=== PATIENT | female | born 1965 | race Caucasian/White ===

== ENCOUNTER → 2021-07-31 10:21 | Outpatient (CLI) | payer BC, SELFPAY ==
--- NOTE | ~2021-07-31 | MM_ITS ---
EXAMINATION: MM screening jennifer BI w justine HISTORY: Screening TECHNIQUE: Craniocaudal and mediolateral oblique 3-D tomosynthesis images were obtained and synthetic 2-D images were generated. CAD analysis was submitted and interpreted. COMPARISON: No prior mammogram is available for comparison at this institution. BREAST PARENCHYMAL COMPOSITION: There are scattered areas of fibroglandular density. FINDINGS: There is no evidence of suspicious mass, calcification, or architectural distortion to sugg est malignancy in either breast. There has been no suspicious interval change. IMPRESSION: 1. No mammographic evidence of malignancy. 2. Recommend routine screening mammography in one year. BI-RADS Category 1: Negative Reviewed, dictated and finalized at location A. L[facility] [employer]SEMBLER
== END ==
PROVIDERS: PCP Internal Medicine; Visit Provider Obstetrics & Gynecology Gynecology
DX: Z12.31 Encounter for screening mammogram for malignant neoplasm of breast (principal)
CPT/HCPCS: 77063; 77067

== ENCOUNTER 2022-05-12 18:24 | Emergency (ER) | payer BC, SELFPAY ==
[2022-05-12] VITALS (13 sets, daily range): BP systolic 122–150; BP diastolic 72–109; PULSE 60–65; RESP 16–18; TEMP 37; O2SAT 93–100
--- NOTE | ~2022-05-12 | XR_ITS ---
EXAM: XR finger 1st LT min 2V DATE: 05/12/2022 19:43 HISTORY: post-reduction . COMPARISON: None available. FINDINGS: Interval reduction into near-anatomic alignment. Dorsal cortical avulsion off the posterio r and proximal aspect of the first distal phalanx, with significant residual distraction. IMPRESSION: The first left distal phalanx has been relocated into near-anatomic alignment. Persistent distraction of the dorsal avulsion fracture fragment. Reviewed, dictated and finalized at location K.
--- NOTE | ~2022-05-12 | XR_ITS ---
EXAMINATION: XR chest 2V Exam Date/Time: 05/12/2022 19:00 CDT HISTORY: syncope Comparison: None available. RESULT: Lines, tubes, and devices: None. Lungs and pleura: Right upper lung granuloma. Reticulonodular opacities most evident in the left mid and lower lung. Hyperinflation, as can be seen with emphysematous change. Lateral costophrenic angle blunting likely related to pleural flattening/scarring. Cardiomediastinal silhouette: Stable. Other: No acute osseous or upper abdominal finding. IMPRESSION: Pulmonary opacities may represent bronchiolitis, as can be seen with atypical infection, asthma, aspi ration, and small airways disease. Reviewed, dictated and finalized at location K. IMPRESSION: Pulmonary opacities may represent bronchiolitis, as can be seen with atypical i nfection, asthma, aspiration, and small airways disease.
--- NOTE | ~2022-05-12 | XR_ITS ---
EXAM: XR hand LT min 3V DATE: 05/12/2022 19:10 HISTORY: left hand pain, injury . COMPARISON: None available. FINDINGS: Normal mineralization. Anterior (palmar) dislocation of the left first distal phalanx, wit h a likely avulsive fracture fragment noted at the distal end of the first proximal phalanx. No lytic or blastic lesion. Joint spaces are maintained. No erosion or periosteal change. Soft tissues within normal limits. IMPRESSION: Anterior left first distal phalanx dislocation, with small associated avulsion fracture. Reviewed, dictated and finalized at location K. IMPRESSION: Anterior left first distal phalanx dislocation, with small associat ed avulsion fracture.
--- NOTE | ~2022-05-12 | XR_ITS ---
EXAM: XR ankle RT min 3V DATE: 05/12/2022 19:10 HISTORY: right ankle pain, injury . COMPARISON: None available. FINDINGS: Normal mineralization. Oblique fracture of the distal right fibula, extending to the joint line, with 1 cm posterior lateral displacement. Significant widening of the medial gutter. Lateral s ubluxation of the talus. Ossific fragment in the medial gutter likely representing an avulsion fractu re fragment. No lytic or blastic lesion. Joint spaces are maintained. No erosion or periosteal change . Soft tissues within normal limits. IMPRESSION: Oblique mildly displaced distal right fibular fracture (Salvador B type fracture). Medial ma lleolus versus medial talar avulsion fracture. Significant widening of the medial joint space. Latera l talar subluxation. Reviewed, dictated and finalized at location K. IMPRESSION: Oblique mildly displaced distal right fibular fracture (Salvador B typ e fracture). Medial malleolus versus medial talar avulsion fracture. Significan t widening of the medial joint space. Lateral talar subluxation.
--- NOTE | 2022-05-12 18:38 | ECG_ITS ---
Measurements Intervals [place] Rate: 64 P: 38 [place]: 174 QRS: 15 QRSD: 89 T: 22 QT: 416 QTc: 430 Interpretive Statements SINUS RHYTHM NO PREVIOUS ECG AVAILABLE FOR COMPARISON Electronically Signed On 05-13-2022 11:36:26 CDT by Berry Urias M.D.
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
[2022-05-12] MEDS: TETANUS,DIPHTHERIA,AC PERTUSSIS ADULT (0.5 ML) BOOSTRIX IM (18:44)
[2022-05-12 19:25] LABS: Basophils Percent Auto 0.6 % (0.2-1.2); Eosinophils Absolute Auto 0.1 K/mm3 (0-0.3); Eosinophils Percent Auto 1.3 % (0-4.4); Hematocrit 35.8 % (37.0-47.0); Hemoglobin 12.1 g/dL (12.0-15.0); Immature Granulocyte Absolute 0.03 K/mm3 (0.00-0.031); Immature Granulocyte Percent A 0.5 % (0-0.5); Lymphocytes Absolute Auto 1.37 K/mm3 (0.9-3.2); Lymphocytes Percent Auto 21.8 % (18.3-44.2); Mean Corpuscular HGB Conc 33.8 g/dl (32-36); Mean Corpuscular Volume 100.6 fl (80-100); Mean Platelet Volume 9.2 fl (7.4-10.4); Monocytes Absolute Auto 0.5 K/mm3 (0.1-0.6); Monocytes Percent Auto 7.8 % (2.6-8.5); Neutrophils Absolute Auto 4.3 K/mm3 (1.3-6.7); Platelet Count Result 271 k/mm3 (150-375); Red Blood Count 3.56 M/mm3 (4.2-5.4); White Blood Count 6.3 K/mm3 (4.5-10.0)
[2022-05-12 19:35] LABS: Anion Gap 15 mmol/L (8-16); Blood Urea Nitrogen 14 mg/dL (7-17); Calcium 8.6 mg/dL (8.4-10.2); Carbon Dioxide 24 mmol/L (22-30); Chloride 100 mmol/L (98-107); Estimated CRCL calculation 48 ml/min; Estimated Glomerular Filt Rate 57; Glucose 104 mg/dL (65-110); Potassium 3.6 mmol/L (3.4-5.0); Sodium 139 mmol/L (137-145)
[2022-05-12] MEDS: MORPHINE SULFATE (*CRX) 4 MG/ML INJ IV PUSH (20:21)
[2022-05-12] MEDS: ONDANSETRON INJ 4 MG/2 ML VIAL IV PUSH (20:21)
== END 2022-05-12 21:55 | disposition home or self-care (01) ==
PROVIDERS: Physician Assistant; Emergency Provider Preventive Medicine Aerospace Medicine; PCP Internal Medicine
DX: S61.412A Laceration without foreign body of left hand, initial encounter (principal); S82.831A Other fracture of upper and lower end of right fibula, initial encounter for closed fracture; S62.522A Displaced fracture of distal phalanx of left thumb, initial encounter for closed fracture; Z23 Encounter for immunization; I10 Essential (primary) hypertension; F17.200 Nicotine dependence, unspecified, uncomplicated; R91.8 Other nonspecific abnormal finding of lung field; V00.141A Fall from scooter (nonmotorized), initial encounter
CPT/HCPCS: 12001; 26755; 29515; 36415; 71046; 73130; 73140; 73610; 80048; 85025; 90471; 90715; 93005; 96365; 96375; 99285; J0131; J2270; J2405

== ENCOUNTER 2022-05-20 10:10 | Outpatient (CLI) | payer BC, SELFPAY ==
--- NOTE | ~2022-05-20 | XR_ITS ---
EXAMINATION: XR finger 1st LT min 2V INDICATION: Left first finger pain TECHNIQUE: Three views of the left first finger are obtained. COMPARISON: 05/12/2022 FINDINGS: Again seen is an oblique intra-articular fracture at the palmar base of the first distal ph alanx which extends to the interphalangeal joint and involves less than 50% of the joint space. There is also an unchanged avulsion at the dorsal base of the first distal phalanx with proximal retractio n of the avulsed fragment which lies dorsal to the proximal phalanx. There is soft tissue swelling th e finger. No new fracture is identified. A splint has been applied. IMPRESSION: 1. Unchanged fractures of the first distal phalanx as described above. Reviewed, dictated and finalized at location A.
== END 2022-05-20 10:11 | disposition home or self-care (01) ==
PROVIDERS: PCP Internal Medicine; Visit Provider Plastic Surgery
DX: S62.522A Displaced fracture of distal phalanx of left thumb, initial encounter for closed fracture (principal)
CPT/HCPCS: 73140

== ENCOUNTER 2022-05-30 00:24 | Day surgery (SDC) | payer BC, SELFPAY ==
[2022-05-27 15:57] VITALS: BMI 25.8
--- NOTE | 2022-05-27 16:15 | PC.NURSE ---
Report to the Outpatient Waiting Room, entrance under the green pavilion located off [facility], at time __0730__ on date __05/30/22__. Planned Procedure Time: ___929 . Time changes happen often and if your time is changed the preop area will call you the afternoon before. - You and your visitor will be asked to self-screen and do not enter if you have any COVID symptoms. - We encourage only one visitor and NO visitors under age 16 are allowed at this time. Your visitor will receive communication by the phone number that is given day of service. - The patient visitor is requested to social distance or may leave the building when not with patient due to restrictions. - A mask is required within the hospital. Patients may have clear liquids (water, carbonated beverages, clear teas, apple juice) until 3 hours prior to surgery (0630 AM) with a maximum of 20 ounces. - No food from midnight until time of surgery - Infants may have breast milk until 4 hours before surgery, formula 6 hours prior to surgery. - Children will be allowed to drink immediately following surgery. If applicable, please bring a bottle or sippy cup to assist with drinking. Juice, water, soda, and popsicles are readily available. For infants on formula, please bring formula the day of surgery. Pacifiers are allowed. Take the following medications with a SIP of water the morning of surgery: _METOPROLOL, PAROXETINE, PAIN PILL IF NEEDED__ Medications to discontinue per physician _PT STATES INSTRUCTED TO STAY ON ASPIRIN PER DR. COX__ Medications to discontinue per ANESTHESIA - _VITAMINS/SUPPLEMENTS, 3 DAYS PRIOR TO SURGERY, Date to take last dose 05/27/22_ Please no make-up, nail canadian, hairspray, perfume, deodorant, or body powder the day of surgery. No jewelry (including any body piercings) or valuables the day of surgery, leave them at home. Please take a shower or bath the night before, or the morning of, surgery with an antibacterial soap. Wear comfortable, loose fitting clothing. Children are encouraged to wear pajamas. - Jewelry must be removed prior to entering the operating room. Rings and piercings that are not removed may be cut off. - The hospital will not accept responsibility for valuables. - Please leave all valuables, including medications, at home the day of surgery. If you are going home after surgery, a licensed recycling collections driver must drive you home. - NO public transportation without another adult. - We recommend that an adult stay with you for 24 hours following discharge. - We also recommend that you do not drive, make important decision, drink alcoholic beverages, or take any drugs that were not prescribed by your health care provider for at least 24 hours after your discharge time. For Pediatric surgeries, we recommend two adults accompany the child home. Follow any additional instructions given to you from your surgeon. If you or anyone in your household have experienced Covid symptoms in the past week, please notify your surgeon or the nurse liaison at the phone number below for possible testing. Telephone instructions given to ____PT and asked if any additional questions and then verbalized understanding. Patient advised to call surgeon office or pre surgery nurse liaison [phone] if any additional questions.
[2022-05-30] VITALS (8 sets, daily range): BP systolic 107–149; BP diastolic 53–78; PULSE 59–72; RESP 10–16; TEMP 36.1–36.8; O2SAT 95–100
--- NOTE | ~2022-05-30 | XR_ITS ---
EXAMINATION: XR surgery orthopedic DATE: 05/30/2022 12:04 INDICATION: ORIF left thumb fracture TECHNIQUE: 2 fluoroscopic images of the left thumb were obtained during procedure performed by Dr. Reina. Radiologist was not present for the imaging or procedure. The amount of fluoroscopy time used du ring this procedure was 1.5 minutes. COMPARISON: 05/20/2022 FINDINGS: Again seen is a comminuted intra-articular fracture involving the dorsal and volar aspect of the base of the left first distal phalanx. Fracture is been reduced to near anatomic alignment and is fixed w ith a pair of axially directed pins which extend from the distal aspect of the distal phalanx across the first interphalangeal joint and into the proximal phalanx. No new fractures identified. Mild oste oarthritis at the first interphalangeal joint. IMPRESSION: 1. Near-anatomic alignment post reduction and pin fixation of a comminuted intra-articular fracture a t the base of the left first distal phalanx. Reviewed, dictated and finalized at location A. IMPRESSION: 1. Near-anatomic alignment post reduction and pin fixation of a comminuted intr a-articular fracture at the base of the left first distal phalanx.
--- NOTE | 2022-05-30 07:08 | WPDHPUPDATE1 ---
History and Physical Update Update Date/Time: 05/30/22 07:08 History and Physical has been reviewed, including an updated exam of the patient. There are NO changes in the patient's condition. Risks, benefits, and alternatives have been discussed and questions answered. Patient agrees to proceed with procedure.
[2022-05-30] MEDS: ACETAMINOPHEN 500 MG TABLET 1000 MG PO (07:50)
[2022-05-30] MEDS: LACTATED RINGERS 1,000 ML 30 ML IV CONT ×2 (08:04→12:08)
--- NOTE | 2022-05-30 08:19 | WPDANESEPPF ---
Anes - Initial Pre Proc Eval Procedure: Operation Date: 05/30/22 09:30 Proposed Procedures p Open Reduction Internal Fixation Left Thumb - Sly Cortez MD Date/Time: 05/30/22 08:19 Surgeon: Sly Cortez MD Pre Op Diagnosis: fracture of left thumb distal phalanx Patient Data Age: 57 Gender: F Height: 1.65 m Weight: 68.8 kg Last Vital Signs Temp 36.1 C L 05/30/22 07:31 Pulse 72 05/30/22 07:31 Resp 16 05/30/22 07:31 BP 107/53 L 05/30/22 07:31 Pulse Ox 99 05/30/22 07:31 O2 Del Method Room Air 05/30/22 07:31 Allergies Allergy/AdvReac Type Severity Reaction Status Date / Time codeine AdvReac Unknown GI UPSET Verified 05/30/22 07:39 Home Medications Medication Instructions Recorded Confirmed Type hydrocodone 5 mg-acetaminophen 325 1 tablet PO Q8H PRN pain #20 tabs 05/12/22 05/27/22 Rx mg tablet ondansetron 4 mg disintegrating 4 mg PO Q8H PRN nausea and 05/12/22 05/27/22 Rx tablet vomiting #20 tabs aspirin 81 mg chewable tablet 81 mg BID 05/27/22 05/30/22 History atorvastatin 20 mg tablet 20 mg QAM 05/27/22 05/30/22 History cetirizine 10 mg capsule (Zyrtec) 10 mg PO DAILY 05/27/22 05/30/22 History cholecalciferol (vitamin D3) 50 50 mcg PO DAILY 05/27/22 05/30/22 History mcg (2,000 unit) capsule cyanocobalamin (vitamin B-12) 1,000 mcg sublingual DAILY 05/27/22 05/30/22 History 1,000 mcg sublingual lozenge lisinopril 20 1 tablet QAM 05/27/22 05/30/22 History mg-hydrochlorothiazide 25 mg tablet metoprolol succinate 100 mg 50 mg PO QAM 05/27/22 05/30/22 History tablet,extended release 24 hr paroxetine HCl 10 mg tablet 10 mg PO QAM 05/27/22 05/30/22 History turmeric root extract 500 mg 500 mg PO QAM 05/27/22 05/30/22 History capsule Patient hx anesthesia problems: none Family hx anesthesia problems: none Results Review: All pre-operative results and documents have been reviewed as part of the pre-operative evaluation. [facility] Past Medical History Medical History History of hypertension Surgical History Surgical History History of tubal ligation Social History Social History Smoking packs per day: 0.5 Smoking cigarettes per day: 10.0 Years smoked: 40 Smoking pack-years: 20.00 Smoking status: Former smoker Tobacco type: cigarettes Smoking end date: 05/12/22 Alcohol intake: current Drinks per week: 10 Substance use: never Substance use type: does not use Living arrangements: with family Spiritual care concerns: No Anes - Eval Final PreProcedure Day of Procedure 05/30/22 08:19 Patient weight: normal Heart: regular rate and rhythm Lungs: clear to auscultation Airway: Mallampati scale class II Neurological: alert and oriented Last oral intake: >/= 8 hours ASA classification: III Emergent: no Anesthetic plan: proceed Anesthesia type and monitoring: general LMA and standard monitoring Results Review: All pre-operative results and documents have been reviewed as part of the pre-operative evaluation. Informed Consent: The patient's anesthetic plan and its attendant risks and benefits were discussed with the patient/family/POA. Questions were solicited and answers provided to the satisfaction of the patient/family/POA.
[2022-05-30] MEDS: LIDO 2%/EPINEPHRINE 1:100,000 20 ML VIAL INFILTRATE (09:45)
[2022-05-30] MEDS: ceFAZolin 2 GM/D5W 50 ML 2 GM/50 ML BAG IVPB (09:45)
--- NOTE | 2022-05-30 12:30 | W.PM.PROC2 ---
Procedure Note - Detailed Date of Procedure 05/30/22 Pre-op Diagnosis Fracture of left thumb distal phalanx with disinsertion of the terminal tendon. Post-op Diagnosis Other (Fracture of the left 5th distal phalanx with avulsion of the terminal tendon.) Procedure Performed ORIF of left 1st distal phalanx with c wire fixation and reinsertion of the terminal tendon. Surgeon Sly Cortez MD Reciprocating Drill Operator [place] Anesthesia General Indications Open fracture of the left 5th distal phalanx. Findings Bony avulsion of the insertion of the terminal tendon Description of Procedure Left thumb was marked on the patient's hand with her consent in the holding area. She was then taken to the operating room where she was placed supine on the operating table. She was given general endotracheal anesthesia and the extremity was prepped and draped in usual fashion. Clinical exam at this point with demonstration of the tenodesis and with pressure on the musculotendinous units with the patient under anesthesia appeared to indicate that both the flexor and extensor tendons were functionally intact. There is however the large floating bone fragment lying over the head of the proximal phalanx which is to be evaluated reduced. It is believed this belongs to the dorsal base of the distal phalanx. The digit was blocked with 2% lidocaine with epinephrine. The extremity was exsanguinated with the Harjeet wrap and the tourniquet inflated to 250 mmHg. Images under continuous fluoroscopy indicated the dorsal fracture fragment. What I thought was also a small volar fracture fragment was again seen but even with extension there was no widening of the less than 2 mm fracture gap. I elected to open the dorsal aspect with a straight midline incision with a Y near the nail fold. Skin flaps carefully elevated revealed some hematoma and abnormal bulge of the dorsal interphalangeal joint distally on the radial side. A slip of the extensor tendon appeared to be intact on the the ulnar l side. Images with a needle slipped under the bone fragment revealed its relation to the joint. I proceeded to incise through the soft tissue that was stretched across the joint distal to the fracture fragment opening the joint and exposing both surfaces of the fracture . This proved to represent an avulsion fracture of the dorsal base of the distal phalanx attached to extensor tendon in a fairly broad area. The subluxed distal phalanx was appropriately position and a 0.035 in C-wire was passed retrograde from the tip of the distal phalanx across the joint and into the proximal phalanx. The reduced tendon was sutured at both sides of the avulsed fragment with 4-0 Ethibond mattress sutures. Images confirmed satisfactory reduction of the fragment. A 2nd C-wire was passed retrograde from the tip into the base of the proximal phalanx. Both pins were cut short beneath the skin. The skin wounds were closed with a nylon stitch. The dorsal incision was closed with running 5 0 nylon. Additional 0.25% Marcaine with epinephrine was infiltrated at all 4 nerve trunks. A small bandage with Coban wrap was applied. The patient had been 2 g Ancef preop. She was discharged from the operating room in stable condition. Estimated Blood Loss 5 Drains No Packing No Pathology None sent Complications No immediate complications Condition Stable Disposition PACU
== END 2022-05-30 13:55 | disposition home or self-care (01) ==
PROVIDERS: PCP Internal Medicine; Visit Provider Plastic Surgery
PROC: (CPT 26418; principal; 2022-05-30 09:30)
DX: S62.522A Displaced fracture of distal phalanx of left thumb, initial encounter for closed fracture (principal); S66.212A Strain of extensor muscle, fascia and tendon of left thumb at wrist and hand level, initial encounter; V00.141A Fall from scooter (nonmotorized), initial encounter; I10 Essential (primary) hypertension
CPT/HCPCS: 26418; 26765; 99199; A9270; C1713; J0690; J1100; J2250; J2405; J2704; J3010; J7120

== ENCOUNTER 2022-07-15 11:31 | Outpatient (CLI) | payer BC, SELFPAY ==
--- NOTE | ~2022-07-15 | XR_ITS ---
EXAM: XR finger 1st LT min 2V DATE: 07/15/2022 11:59 HISTORY: FX OF DISTAL PHALANX . COMPARISON: 05/20/2022. FINDINGS: Pin fixation of the left first proximal phalange fracture. Stable volar plate avulsion fra gment. Decreased distraction of the dorsal plate avulsion fracture versus fractured osteophyte. IMPRESSION: Stable fractures. No radiographic evidence of hardware-related complication. Reviewed, dictated and finalized at location K. TAL DESIGNER IMPRESSION: Stable fractures. No radiographic evidence of hardware-related comp lication.
== END 2022-07-15 11:32 | disposition home or self-care (01) ==
PROVIDERS: PCP Internal Medicine; Visit Provider Plastic Surgery
DX: S62.521B Displaced fracture of distal phalanx of right thumb, initial encounter for open fracture (principal); T14.90XA Injury, unspecified, initial encounter
CPT/HCPCS: 73140

== ENCOUNTER 2023-11-25 10:24 | Outpatient (CLI) | payer BC, SELFPAY ==
--- NOTE | ~2023-11-25 | DEXA_ITS ---
Bone Density Report Name: TYRELL KNOWLES Age: 58 Sex: Female Ethnicity: White Date of : 1965 Indication: postmenopausal; screening for osteoporosis; prior fracture; Referring Provider: Trace*Baldev, Nat Study: Bone densitometry was performed. Exam Date: November 25, 2023 Accession number: [id number] Bone Density: Region BMD T-score Z-score Classification AP Spine (L1-L4) 1.254 1.9 3.3 Normal Femoral Neck (Left) 0.845 0.0 1.3 Normal Total Hip (Left) 0.994 0.4 1.4 Normal Femoral Neck (Right) 0.892 0.4 1.7 Normal Total Hip (Right) 0.950 0.1 1.0 Normal Total Hip Mean 0.972 0.3 1.2 Normal World Health Organization criteria for BMD impression classify patients as: Normal (T-score at or above -1.0), Osteopenia (T-score between -1.0 and -2.5), or Osteoporosis (T-score at or below -2.5). 10-year Fracture Risk: FRAX not reported because: All T-scores for Spine Total, Hip Total, Femoral Neck at or above -1.0 Clinical Information Provided by Patient: Has had a low trauma fracture Smokes Has used the following medications: Vitamin D Patient maximum height was 65 Menopause Age: 52 No regular weight bearing exercise Does not regularly consume dairy products Drinks caffeinated beverages Onset of menses at age 10 Number of children 1 Impression: The patient has normal bone mass. The patient has risk factors, including: smoking, previous fracture. Discussion: BONE DENSITY IS ABOVE THE MINIMUM DESIRABLE LEVEL AT ALL SKELETAL SITES TESTED. This patient?s bone mineral density is above the minimum desirable level (T-score -1.0 or better) at all sites measured. The patient should follow a healthful lifestyle (good nutrition with adequate calcium and vitamin D, and appropriate weight-bearing exercise). Follow-Up: Consider repeating this study in 5 years or sooner if there is some new clinical indication. Reported by: BEKAH on 11/25/2023 10:47:00 AM. Reviewed, dictated and finalized at location AShaista LUCIANO
--- NOTE | ~2023-11-25 | MM_ITS ---
EXAMINATION: MM screening jennifer BI w justine HISTORY: Screening mammogram TECHNIQUE: Craniocaudal and mediolateral oblique 3-D tomosynthesis images were obtained and synthetic 2-D images were generated. CAD analysis was submitted and interpreted. COMPARISON: 07/31/2021 bilateral screening mammogram BREAST PARENCHYMAL COMPOSITION: There are scattered areas of fibroglandular density. FINDINGS: There is no evidence of suspicious mass, calcification, or architectural distortion to sugg est malignancy in either breast. There has been no suspicious interval change. IMPRESSION: 1. No mammographic evidence of malignancy. 2. Recommend routine screening mammography in one year. BI-RADS Category 1: Negative Reviewed, dictated and finalized at location A.
== END 2023-11-25 10:25 ==
LOC: MICIMG 10:25
PROVIDERS: PCP Nurse Practitioner; Visit Provider Nurse Practitioner
DX: Z12.31 Encounter for screening mammogram for malignant neoplasm of breast (principal); Z78.0 Asymptomatic menopausal state; Z13.820 Encounter for screening for osteoporosis
CPT/HCPCS: 77063; 77067; 77080

== ENCOUNTER 2025-02-10 15:29 | Outpatient (CLI) | payer BC, SELFPAY ==
--- NOTE | ~2025-02-10 | MM_ITS ---
EXAMINATION: MM screening jennifer BI w justine HISTORY: Screening mammogram TECHNIQUE: Craniocaudal and mediolateral oblique 3-D tomosynthesis images were obtained and synthetic 2-D images were generated. CAD analysis was submitted and interpreted. COMPARISON: 11/25/2023, 07/31/2021 BREAST PARENCHYMAL COMPOSITION:Not Dense. There are scattered areas of fibroglandular density. FINDINGS: No suspicious mass, calcification, or architectural distortion are identified in either flori ast to suggest malignancy. There has been no suspicious interval change. IMPRESSION: No mammographic evidence of malignancy. Recommend routine screening mammography in one year. BI-RADS Category 1: Negative Reviewed, dictated and finalized at location .
== END 2025-02-10 15:30 | disposition home or self-care (01) ==
PROVIDERS: PCP Nurse Practitioner; Visit Provider Nurse Practitioner
DX: Z12.31 Encounter for screening mammogram for malignant neoplasm of breast (principal)
CPT/HCPCS: 77063; 77067